=== PATIENT | male | born 1985 | race Caucasian/White ===

== ENCOUNTER 2025-05-29 11:22 | Emergency (ER) | payer MEDICAID, OTHER ==
[~2025-05-29] VITALS: Ht 180.3 cm; Wt 86.0 kg
[2025-05-29 11:24] VITALS: TEMP 37.2; O2SAT 98
[2025-05-29 13:02] VITALS: BP 137/78; PULSE 94; RESP 18; O2SAT 100
== END 2025-05-29 13:02 | disposition home or self-care (01) ==
LOC: ER 11:22
DX: F15.10 Other stimulant abuse, uncomplicated (principal); Z02.2 Encounter for examination for admission to residential institution
CPT/HCPCS: 99283